=== PATIENT | male | born 1960 | race Caucasian/White ===

== ENCOUNTER 2020-10-01 10:59 | Emergency (ER) | payer OTHER ==
[2020-10-01 11:41] LABS: BASOPHIL 0.7 % (0-2); EOSINOPHIL 0.9 % (0-5); HCT 48.1 % (42.0-52.0); HGB 15.4 g/dl (13.2-18.0); LYMPHOCYTE 9.5 % (15-48); MCH 27.2 pg (25.0-31.0); MCV 84.8 fL (78.0-100.0); MONOCYTE 3.7 % (0-12); MPV 9.5 fL (6.0-9.5); NRBC 0; PLT 303 K/uL (150-400); RBC 5.67 M/uL (4.70-6.00); WBC 8.9 K/uL (4.0-10.5)
[2020-10-01 11:46] LABS: BILIRUBIN NEGATIVE (NEGATIVE); BLOOD 1+ Ery/uL (NEGATIVE); CLARITY CLEAR (CLEAR); COLOR YELLOW (YELLOW); GLUCOSE (U) NORMAL (NORMAL); LEUKOCYTES NEGATIVE Leu/uL (NEGATIVE); NITRITE NEGATIVE (NEGATIVE); PROTEIN 2+ mg/dL (NEGATIVE); UROBILINOGEN 0.2 mg/dL (0.2-1.0); pH 7.5 (5.0-9.0)
[2020-10-01 12:01] LABS: ALBUMIN 3.3 g/dL (3.4-5.0); BILIRUBIN - TOTAL 1.5 mg/dL (0.2-1.0); BUN/CREAT RATIO (CALC) 19.3 RATIO; CREATININE 1.09 mg/dL (0.67-1.17); GLOBULIN (CALCULATION) 4.7 g/dL; POTASSIUM 3.9 mmol/L (3.5-5.1)
[2020-10-01 12:12] LABS: CORONAVIRUS 2019 SARS-COV-2 NEGATIVE (NEGATIVE); INFLUENZA A NAA NEGATIVE (NEGATIVE)
== END 2020-10-01 14:16 | disposition left against medical advice (07) ==
LOC: FER 10:59
PROVIDERS: Emergency Medicine
DX: I16.1 Hypertensive emergency (principal); I16.0 Hypertensive urgency; I11.0 Hypertensive heart disease with heart failure; I50.9 Heart failure, unspecified; F17.220 Nicotine dependence, chewing tobacco, uncomplicated; Z20.822 Contact with and (suspected) exposure to COVID-19
CPT/HCPCS: 36415; 71045; 80053; 81001; 82150; 83605; 83880; 84145; 84484; 85025; 87040; 87088; 93005; U0002

== ENCOUNTER 2020-10-10 23:21 | Day surgery (SDCO) | payer OTHER ==
[~2020-10-10] VITALS: Ht 177.8 cm; Wt 119.0 kg
[2020-10-11 01:35] LABS: BASOPHIL 0.5 % (0-2); EOSINOPHIL 3.7 % (0-5); HCT 41.2 % (42.0-52.0); HGB 12.7 g/dl (13.2-18.0); LYMPHOCYTE 14.3 % (15-48); MCH 26.5 pg (25.0-31.0); MCHC 30.8 g/dL (32.0-36.0); MCV 85.8 fL (78.0-100.0); MONOCYTE 1.4 % (0-12); MPV 10.1 fL (6.0-9.5); NEUTROPHIL 79.9 % (41-80); NRBC 0; PLT 228 K/uL (150-400); RDW 16.2 % (11.5-14.0)
[2020-10-11 01:52] LABS: ALBUMIN 2.6 g/dL (3.4-5.0); BILIRUBIN - TOTAL 0.5 mg/dL (0.2-1.0); BUN/CREAT RATIO (CALC) 22.3 RATIO; CREATININE 1.12 mg/dL (0.67-1.17); GLOBULIN (CALCULATION) 4.3 g/dL; TOTAL PROTEIN 6.9 g/dL (6.4-8.2)
[2020-10-11 01:59] LABS: LACTIC ACID 1.1 mmol/L (0.4-1.9)
[2020-10-11 02:02] LABS: WBC 4.4 K/uL (4.0-10.5)
[2020-10-11 02:30] LABS: INR 1.15 (0.9-1.2); PTT 30.4 SECONDS (22.2-34.7)
[2020-10-11 02:31] LABS: D-DIMER 1.8 ug/mLFEU (0.00-0.41)
--- NOTE | 2020-10-11 13:48 | NUR ---
10/11/20 Mr. Wallace was independent in the home and community prior to admission. Mr. Wallace works in [place] [employer], He has an apartment in [place] provided by his the company who contracts him. he has been staying in the home of his sister and niece in [place]. His sister is disabled. He and his niece provide her care. - Mr. Wallace does not have [facility] insurance or a PCP. He has not been to the doctor in 37 years. - He reports to be able to meet his basic financial needs. Mr. Wallace was educated to the [facility] and [employer] [facility].
--- NOTE | 2020-10-12 04:12 | NUR ---
ELISA CHEEMA NOTIFIED OF HTN OF 152/110 PT ASYMPTOMATIC AND HR IS 76. HYDRALAZINE 10MG IVP IT DOSE ORDERED VIA VERBAL ORDER BY ANETTE PÉREZ. READ BACK AND VERIFIED. WILL GIVE WHEN VERIFIED BY PHARMACY.
--- NOTE | 2020-10-12 06:14 | NUR ---
BP ONE HOUR POST HYDRALAZINE 189/111. PT HAVING EXPIRATORY WHEEZES WHEN UP ON LEFT SIDE OR LAYING FLAT ON BACK. O2 96 ON ROOM AIR. ANETTE PÉREZ CALLED AND NOTIFIED. SEE NEW ORDERS.
[2020-10-12 06:32] LABS: HCT 44.6 % (42.0-52.0); HGB 13.9 g/dl (13.2-18.0); MCH 26.2 pg (25.0-31.0); MCHC 31.2 g/dL (32.0-36.0); MCV 84.2 fL (78.0-100.0); MPV 9.6 fL (6.0-9.5); RBC 5.3 M/uL (4.70-6.00); RDW 16.3 % (11.5-14.0); WBC 5.6 K/uL (4.0-10.5)
[2020-10-12 06:48] LABS: CREATININE 0.9 mg/dL (0.67-1.17); POTASSIUM 4.4 mmol/L (3.5-5.1)
[2020-10-12 16:10] LABS: LYME IGG/IGM AB <0.91 ISR (0.00-0.90)
[2020-10-13 04:42] LABS: HCT 42.5 % (42.0-52.0); HGB 13.4 g/dl (13.2-18.0); MCH 26.5 pg (25.0-31.0); MCHC 31.5 g/dL (32.0-36.0); MCV 84.2 fL (78.0-100.0); MPV 9.9 fL (6.0-9.5); RBC 5.05 M/uL (4.70-6.00); RDW 16.3 % (11.5-14.0); WBC 6.1 K/uL (4.0-10.5)
[2020-10-13 05:04] LABS: BUN/CREAT RATIO (CALC) 18.8 RATIO; CREATININE 1.01 mg/dL (0.67-1.17)
--- NOTE | 2020-10-13 14:15 | NUR ---
10/13/[address] [facility]
[2020-10-13 16:11] LABS: E. CHAFFEENSIS (HME) IGG TITER Negative (Neg:<1:64); E. CHAFFEENSIS (HME) IGM TITER Negative (Neg:<1:20); HGE IGG TITER Negative (Neg:<1:64); HGE IGM TITER Negative (Neg:<1:20)
[2020-10-19 16:09] LABS: FRANCISELLA TULARENSIS IGG Negative (Negative); FRANCISELLA TULARENSIS IGM Negative (Negative)
== END 2020-10-13 13:20 | disposition other institution (70) ==
LOC: FER 23:21 → FTCU 10-11 05:49
PROVIDERS: Emergency Medicine Emergency Medical Services; Hospitalist; ADMIT Internal Medicine
DX: J90 Pleural effusion, not elsewhere classified (principal); I16.0 Hypertensive urgency; I11.0 Hypertensive heart disease with heart failure; I50.9 Heart failure, unspecified; R21 Rash and other nonspecific skin eruption; I45.10 Unspecified right bundle-branch block; J98.11 Atelectasis; R79.89 Other specified abnormal findings of blood chemistry; R77.8 Other specified abnormalities of plasma proteins; I08.2 Rheumatic disorders of both aortic and tricuspid valves; I27.20 Pulmonary hypertension, unspecified; T14.8XXA Other injury of unspecified body region, initial encounter; E66.9 Obesity, unspecified; Z68.41 Body mass index [BMI] 40.0-44.9, adult; Z87.891 Personal history of nicotine dependence; Z20.822 Contact with and (suspected) exposure to COVID-19; W57.XXXA Bitten or stung by nonvenomous insect and other nonvenomous arthropods, initial encounter
CPT/HCPCS: 36415; 36600; 70450; 71045; 71275; 80048; 80053; 82803; 83605; 83615; 83880; 84145; 84484; 85025; 85379; 85384; 85610; 85730; 86618; 86666; 86757; 87040; 93005; 94010; 94640; G0378; J0360; J0696; J1650; J1940; J2060; J7050; Q9967; U0002

== ENCOUNTER 2020-11-14 00:14 | Emergency (ER) | payer OTHER ==
[2020-11-14 00:41] LABS: BASOPHIL 0.5 % (0-2); EOSINOPHIL 2.7 % (0-5); HCT 34.6 % (42.0-52.0); HGB 11.2 g/dl (13.2-18.0); MCH 27.5 pg (25.0-31.0); MCHC 32.4 g/dL (32.0-36.0); MCV 84.8 fL (78.0-100.0); MONOCYTE 6.2 % (0-12); MPV 9.6 fL (6.0-9.5); NEUTROPHIL 71.2 % (41-80); NRBC 0; PLT 257 K/uL (150-400); RBC 4.08 M/uL (4.70-6.00); RDW 16.2 % (11.5-14.0); WBC 7.4 K/uL (4.0-10.5)
[2020-11-14 00:45] LABS: INR 1.05 (0.9-1.2); PTT 32.8 SECONDS (22.2-34.7)
[2020-11-14 00:54] LABS: BILIRUBIN - TOTAL 1.6 mg/dL (0.2-1.0); BUN/CREAT RATIO (CALC) 20.7 RATIO; CREATININE 1.35 mg/dL (0.67-1.17); POTASSIUM 4.3 mmol/L (3.5-5.1)
== END 2020-11-14 05:12 | disposition other institution (70) ==
LOC: FER 00:14
PROVIDERS: Emergency Medicine Emergency Medical Services
DX: I72.4 Aneurysm of artery of lower extremity (principal); J90 Pleural effusion, not elsewhere classified; I25.10 Atherosclerotic heart disease of native coronary artery without angina pectoris; I10 Essential (primary) hypertension; E78.5 Hyperlipidemia, unspecified; Z95.5 Presence of coronary angioplasty implant and graft; Z79.01 Long term (current) use of anticoagulants; Z79.899 Other long term (current) drug therapy; Z79.82 Long term (current) use of aspirin; Z79.02 Long term (current) use of antithrombotics/antiplatelets
CPT/HCPCS: 36415; 75635; 80053; 85025; 85610; 85730; 93971; J1170; J2270; J2405; J7030; Q9967